=== PATIENT | female | born 1980 | race Caucasian/White ===

== ENCOUNTER 2018-01-25 16:09 | Emergency (ER) | payer BC ==
[2018-01-25 18:20] LABS: ADD MAN DIFF? NO
[2018-01-25] MEDS: ASPIRIN 325 MG TAB PO (18:20)
[2018-01-25] MEDS: LORAZEPAM 2 MG INJ IV (18:21)
[2018-01-25] MEDS: SOD CHLORIDE 0.9% 1,000 ML IV ×2 (18:21→23:01)
[2018-01-25 18:22] LABS: WHITE BLOOD COUNT 9.3 10^3/ul (4.8-10.8)
[2018-01-25 18:22] LABS: BASOPHILS % 0.4 % (0.0-2.0); EOSINOPHILS # 0.1 10^3/ul (0.0-0.5); EOSINOPHILS % 1.2 % (0.0-7.0); HEMATOCRIT 33.5 % (37.0-47.0); HEMOGLOBIN 10.9 g/dl (12.0-16.0); LYMPHOCYTES # 3.4 10^3/ul (0.8-2.9); LYMPHOCYTES % 36.8 % (15.0-51.0); MEAN CORPUSCULAR HEMOGLOBIN 29.1 pg (29.0-33.0); MEAN CORPUSCULAR HGB CONC 32.5 g/dl (32.0-37.0); MEAN CORPUSCULAR VOLUME 89.6 fl (82.0-101.0); MEAN PLATELET VOLUME 9.7 fl (7.4-10.4); MONOCYTE # 0.7 10^3/ul (0.3-0.9); MONOCYTES % 7.9 % (0.0-11.0); NEUTROPHILS % 53.5 % (39.0-77.0); PLATELET COUNT 350 10^3/UL (140-415); RED BLOOD COUNT 3.74 10^6/ul (4.20-5.40); RED CELL DISTRIBUTION WIDTH 13.6 % (11.5-14.5)
[2018-01-25 18:42] LABS: ALANINE AMINOTRANSFERASE 43 IU/L (13-69); ALBUMIN 4.2 g/dl (3.3-4.9); ALBUMIN/GLOBULIN RATIO 1.23; ALKALINE PHOSPHATASE 89 IU/L (42-121); ANION GAP 14 (8-16); ASPARTATE AMINO TRANSFERASE 29 IU/L (15-46); BLOOD UREA NITROGEN 18 mg/dl (7-20); CARBON DIOXIDE 25 mmol/L (21-31); CHLORIDE 101 mmol/L (97-110); CREATINE KINASE 97 IU/L (23-200); CREATININE 0.59 mg/dl (0.44-1.00); GLUCOSE 100 mg/dl (70-220); POTASSIUM 3.3 mmol/L (3.5-5.1); SODIUM 137 mmol/L (135-144); TOTAL PROTEIN 7.6 g/dl (6.1-8.1)
[2018-01-25 18:50] LABS: INR 0.93; PROTIME 12.5 Sec (11.9-14.9)
[2018-01-25 18:51] LABS: PARTIAL THROMBOPLASTIN TIME 28.6 Sec (25.0-35.0)
[2018-01-25 18:53] LABS: CK INDEX 0.4; CK-MB 0.37 ng/ml (0.0-2.4)
[2018-01-25 18:55] LABS: B-TYPE NATRIURETIC PEPTIDE < 11 PG/ML (0-125); TROPONIN-I < 0.012 ng/ml (0.000-0.120)
[2018-01-25 18:59] LABS: D-DIMER 839.68 ng/ml (<460)
[2018-01-25] MEDS: IOHEXOL 100 ML (22:23)
[2018-01-25] MEDS: SOD CHLORIDE 0.9% 100 ML (22:23)
[2018-01-25] MEDS: KETOROLAC 30 MG INJ IV (23:46)
== END 2018-01-25 23:09 | disposition home or self-care (01) ==
LOC: E/R 23:09
DX: M94.0 Chondrocostal junction syndrome [Tietze] (principal); I10 Essential (primary) hypertension; Z79.01 Long term (current) use of anticoagulants
CPT/HCPCS: 71275; 80053; 81025; 82550; 82553; 83880; 84484; 85025; 85378; 85610; 85730; 93005; 96374; 96375; 99285-25